=== PATIENT | female | born 1980 | race Hispanic/Latino ===

== ENCOUNTER 2016-07-16 19:16 | Emergency (ER) | payer MEDICAID ==
[2016-07-16 19:17] VITALS: BMI 36.8
[2016-07-16 19:24] VITALS: BP 120/70; PULSE 103; O2SAT 97
[2016-07-16 19:35] VITALS: TEMP 98.6
[2016-07-16] MEDS ORDERED: Albuterol-Ipratrop 3 mg / 0.5 (3 ml) UD INH STA ×2 (20:16→21:37)
--- NOTE | 2016-07-16 20:18 | ED PDOC ---
HPI: SOB/CHF/COPD Time Seen by Provider: 07/16/16 19:39 Chief Complaint (Nursing): Shortness Of Breath Chief Complaint (Provider): SOB History Per: Patient Additional Complaint(s): 36 yo female, PMH of Asthma, presents to ED with complaints of shortness of breath, cough, congestion and asthma exacerbation x 4 days. Using inhaler with no relief. Complaints of chest pain when inhaling. Of note: Pt's daughter here to be evaluated for the same Past Medical History Reviewed: Nursing Documentation, Vital Signs Vital Signs: Last Vital Signs Temp 98.6 F 07/16/16 19:21 Pulse 103 H 07/16/16 19:21 Resp 22 07/16/16 22:32 BP 120/70 07/16/16 19:21 Pulse Ox 97 07/16/16 20:18 - Medical History PMH: Asthma, Cardia Arrhythmia, HTN, Hypercholesterolemia - Surgical History Surgical History: - Family History Family History: States: Unknown Family Hx - Living Arrangements Living Arrangements: With Family - Social History Current smoker - smoking cessation education provided: No Alcohol: Social Drugs: Denies - Immunization History Hx Tetanus Toxoid Vaccination: No Hx Influenza Vaccination: No Hx Pneumococcal Vaccination: No - Home Medications Home Medications: Ambulatory Orders Medication Instructions Recorded Advair Diskus 500/50 500 mcg INH BID 11/24/12 Albuterol Sulfate 3 ml 3 ml INH PRN PRN 11/24/12 Azithromycin [Zithromax] 500 mg PO DAILY #6 tab 07/16/16 Fluticasone/Salmeterol 250/50 1 dsk IH DAILY #1 puff 07/16/16 [Advair Diskus] Methylprednisolone [Medrol Dose 4 mg PO DAILY #21 mg 07/16/16 Pack (21 tabs)] Promethazine HCl/Codeine 5 ml PO HS #80 ml 07/16/16 [Prometh-Codein 6.25-10 mg/5 ml] - Allergies Allergies/Adverse Reactions: Allergies Allergy/AdvReac Type Severity Reaction Status Date / Time No Known Allergies Allergy Unverified 04/09/14 01:49 Review of Systems ROS Statement: Except As Marked, All Systems Reviewed And Found Negative ENT: Positive for: Nose Congestion Respiratory: Positive for: Cough Physical Exam - Reviewed Nursing Documentation Reviewed: Yes Vital Signs Reviewed: Yes - Physical Exam Appears: Positive for: Well, Non-toxic, No Acute Distress Head Exam: Positive for: ATRAUMATIC, NORMAL INSPECTION, NORMOCEPHALIC Skin: Positive for: Normal Color, Warm, DRY Eye Exam: Positive for: EOMI, Normal appearance, PERRL ENT: Positive for: Normal ENT Inspection Neck: Positive for: Normal, Painless ROM Cardiovascular/Chest: Positive for: Regular Rate, Rhythm Respiratory: Positive for: Normal Breath Sounds, Wheezing (bilaterally). Negative for: Decreased Breath Sounds, Accessory Muscle Use Gastrointestinal/Abdominal: Positive for: Normal Exam, Bowel Sounds, Soft Back: Positive for: Normal Inspection Extremity: Positive for: Normal ROM Neurologic/Psych: Positive for: Alert, Oriented - ECG O2 Sat by Pulse Oximetry: 97 Medical Decision Making Medical Decision Making: CXR: NAD, as read by ARELIS Muller neb x 2 administered as well as 125 mg Solumedrol On re-eval, Pt reports feeling greatly improved. POX:97% on RA Lungs CTA bilaterally with full resolution of wheezing Disposition - Clinical Impression Clinical Impression: Otitis media, Cough, Bronchospasm - Patient ED Disposition Is Patient to be Admitted: No - Disposition Disposition: Routine/Home Disposition Time: 21:00 Condition: STABLE Prescriptions: Azithromycin [Zithromax] 500 mg PO DAILY #6 tab Fluticasone/Salmeterol 250/50 [Advair Diskus] 1 dsk IH DAILY #1 puff Methylprednisolone [Medrol Dose Pack (21 tabs)] 4 mg PO DAILY #21 mg Promethazine HCl/Codeine [Prometh-Codein 6.25-10 mg/5 ml] 5 ml PO HS #80 ml Instructions: Otitis Media (ED), Upper Respiratory Infection (ED)
[2016-07-16 22:35] VITALS: RESP 22
--- NOTE | 2016-07-17 07:45 | RAD ---
HISTORY: cough and fever COMPARISON: No prior. TECHNIQUE: Chest PA and lateral FINDINGS: LUNGS: No active pulmonary disease. PLEURA: No significant pleural effusion identified. No pneumothorax apparent. CARDIOVASCULAR: Normal. OSSEOUS STRUCTURES: No significant abnormalities. VISUALIZED UPPER ABDOMEN: Normal. OTHER FINDINGS: None. IMPRESSION: No active disease.
== END 2016-07-16 20:12 | disposition home or self-care (01) ==
LOC: H.ER 19:16
DX: J98.01 Acute bronchospasm (principal); R05 Cough; H66.90 Otitis media, unspecified, unspecified ear; R50.9 Fever, unspecified

== ENCOUNTER 2016-07-27 19:30 | Emergency (ER) | payer MEDICAID ==
[2016-07-27 19:31] VITALS: BMI 36.8
[2016-07-27 19:52] VITALS: RESP 16
--- NOTE | 2016-07-27 20:41 | ED PDOC ---
HPI: Headache Time Seen by Provider: 07/27/16 20:08 Chief Complaint (Nursing): Headache Chief Complaint (Provider): headache History Per: Patient History/Exam Limitations: no limitations Onset/Duration Of Symptoms: Days (2), Waxing/Waning Current Symptoms Are (Timing): Still Present Quality: "Pain" Associated Symptoms: Nausea, Vomiting Additional History Per: Patient Additional Complaint(s): 36 y/o female history of asthma, hypertension presents for eval of intermittent headache x 2 days. Patient describes pain as "pressure", states when it first presented the pain traveled down left side of neck to chest, and then her left arm became numb. Patient feels the intensity of the pain caused her to have anxiety, as she has had a family member who recently from a brain tumor. Patient has not had those associated symptoms since. Patient notes one vomiting episode last night. Patient notes headache to come and go throughout the day, little relief with OTC medications. Denies fever, neck pain/stiffness , extremity numbness/weakness, vision changes, chest pain, shortness of breath, palpitations, abdominal pain, recent travel, sick contacts. Past Medical History Reviewed: Historical Data, Nursing Documentation, Vital Signs Vital Signs: Last Vital Signs Temp 98.0 F 07/27/16 19:49 Pulse 67 07/27/16 19:49 Resp 16 07/27/16 19:49 BP 132/73 07/27/16 19:49 Pulse Ox 100 07/27/16 19:49 - Medical History PMH: Asthma, Cardia Arrhythmia, HTN, Hypercholesterolemia - Surgical History Surgical History: - Family History Family History: States: Unknown Family Hx - Living Arrangements Living Arrangements: With Family - Social History Current smoker - smoking cessation education provided: No Alcohol: None Drugs: Denies - Immunization History Hx Tetanus Toxoid Vaccination: No Hx Influenza Vaccination: No Hx Pneumococcal Vaccination: No - Home Medications Home Medications: Ambulatory Orders Medication Instructions Recorded Advair Diskus 500/50 500 mcg INH BID 11/24/12 Albuterol Sulfate 3 ml 3 ml INH PRN PRN 11/24/12 Azithromycin [Zithromax] 500 mg PO DAILY #6 tab 07/16/16 Fluticasone/Salmeterol 250/50 1 dsk IH DAILY #1 puff 07/16/16 [Advair Diskus] Methylprednisolone [Medrol Dose 4 mg PO DAILY #21 mg 07/16/16 Pack (21 tabs)] Promethazine HCl/Codeine 5 ml PO HS #80 ml 07/16/16 [Prometh-Codein 6.25-10 mg/5 ml] Amoxicillin/Clavulanate [Augmentin 1 tab PO Q12 #14 tab 07/27/16 875 MG-125 MG] Fluticasone Nasal [Flonase] 1 actuation NS BID #1 bottle 07/27/16 Naproxen [Naprosyn] 500 mg PO Q12 PRN #20 tablet 07/27/16 - Allergies Allergies/Adverse Reactions: Allergies Allergy/AdvReac Type Severity Reaction Status Date / Time No Known Allergies Allergy Unverified 04/09/14 01:49 Review of Systems ROS Statement: Except As Marked, All Systems Reviewed And Found Negative Neurological: Positive for: Headache Physical Exam - Reviewed Nursing Documentation Reviewed: Yes Vital Signs Reviewed: Yes - Physical Exam Appears: Positive for: Well, Non-toxic, No Acute Distress Head Exam: Positive for: ATRAUMATIC, NORMAL INSPECTION, NORMOCEPHALIC Skin: Positive for: Normal Color Eye Exam: Positive for: Normal appearance, EOMI, PERRL ENT: Positive for: Normal ENT Inspection Cardiovascular/Chest: Positive for: Regular Rate, Rhythm Respiratory: Positive for: Normal Breath Sounds Gastrointestinal/Abdominal: Positive for: Normal Exam Back: Positive for: Normal Inspection Extremity: Positive for: Normal ROM Neurologic/Psych: Positive for: Alert, Oriented - Laboratory Results Result Diagrams: 07/27/16 21:11 07/27/16 21:11 - ECG ECG: Positive for: Viewed By Me (reviewed by ED attending) ECG Rhythm: Positive for: Sinus Rhythm O2 Sat by Pulse Oximetry: 100 - Progress ED Course And Treament: labs, ekg, CT head, IV fluids, PO tylenol EXAM: CT Head Without Intravenous Contrast CLINICAL HISTORY: 36 years old, female; Pain; Headache; Headache not specified; Additional info: Headache. Sent phy. Doc. With request TECHNIQUE: Axial computed tomography images of the head/brain without intravenous contrast. This CT exam was performed using one or more of the following dose reduction techniques: automated exposure control, adjustment of the mA and/or kV according to patient size, and/or use of iterative reconstruction technique. Coronal and sagittal reformatted images were created and reviewed. COMPARISON: CT HEAD OR BRAIN W/O CONT 12/01/2012 7:38:50 PM FINDINGS: Brain: No intracranial hemorrhage. No mass. No definite edema. Ventricles: No hydrocephalus. Bones/joints: No acute fracture. Soft tissues: Unremarkable. Sinuses: Moderate mucosal thickening of visualized maxillary sinuses. Scattered mild mucosal thickening of ethmoid sinuses. Mild to moderate mucosal thickening of sphenoid sinuses. Mastoid air cells: No mastoid effusion. Orbits: Unremarkable as visualized. IMPRESSION: 1. No acute intracranial abnormality. 2. Sinus disease. 3. Incidental/non-acute findings are described above. Patient educated on findings, discharged with rx Augmentin, flonase, Naproxen. Advised follow up PMD 2-3 days. Return to ED for worsneing/concerning symptoms. Disposition - Clinical Impression Clinical Impression: Headache, Sinusitis - Patient ED Disposition Is Patient to be Admitted: No Counseled Patient/Family Regarding: Studies Performed, Diagnosis, Need For Followup, Rx Given - Disposition Disposition: Routine/Home Disposition Time: 23:01 Condition: IMPROVED Prescriptions: Amoxicillin/Clavulanate [Augmentin 875 MG-125 MG] 1 tab PO Q12 #14 tab Fluticasone Nasal [Flonase] 1 actuation NS BID #1 bottle Naproxen [Naprosyn] 500 mg PO Q12 PRN #20 tablet PRN Reason: Pain, Moderate (4-7) Instructions: Sinusitis (ED), Acute Headache (ED)
[2016-07-27 21:16] LABS: BASO # 0.1 K/uL (0.0-0.2); EOS # 0.1 K/uL (0.0-0.7); EOS % 1.5 % (0.0-4.0); HEMATOCRIT 39.5 % (34.0-47.0); LYMPH # 2.3 K/uL (1.0-4.3); LYMPH % 26.4 % (20.0-40.0); MEAN CELL VOLUME 90.3 fl (81.0-99.0); MEAN CORPUSCULAR HEMOGLOBIN 30.1 pg (27.0-31.0); MEAN CORPUSCULAR HGB CONC 33.3 g/dL (33.0-37.0); MEAN PLATELET VOLUME 9.1 fl (7.2-11.7); MONO # 0.6 K/uL (0.0-0.8); MONO % 6.6 % (0.0-10.0); NEUT # 5.7 K/uL (1.8-7.0); NEUT % 64.5 % (50.0-75.0); NRBC % 0.1 % (0.0-0.0); WHITE BLOOD COUNT 8.9 K/uL (4.8-10.8)
[2016-07-27] MEDS: Sodium Chloride 0.9% 1,000 ML IV STA (21:16)
[2016-07-27 21:26] LABS: ALB/GLOB RATIO 1.6 (1.0-2.1); ALKALINE PHOSPHATASE 62 U/L (38-126); ALT/SGPT 27 U/L (9-52); AST/SGOT 18 U/L (14-36); BILIRUBIN,TOTAL 0.3 mg/dl (0.2-1.3); BLOOD UREA NITROGEN 13 mg/dl (7-17); CALCIUM 9.2 mg/dL (8.4-10.2); CARBON DIOXIDE 28 mmol/L (22-30); CHLORIDE 105 mmol/L (98-107); GFR AFRICAN-AMERICAN > 60; GLUCOSE,RANDOM 97 mg/dL (65-105); POTASSIUM 4.3 MMOL/L (3.6-5.0); SODIUM 142 mmol/l (132-148)
--- NOTE | 2016-07-27 22:43 | CT ---
EXAM: CT Head Without Intravenous Contrast CLINICAL HISTORY: 36 years old, female; Pain; Headache; Headache not specified; Additional info: Headache. Sent phy. Doc. With request TECHNIQUE: Axial computed tomography images of the head/brain without intravenous contrast. This CT exam was performed using one or more of the following dose reduction techniques: automated exposure control, adjustment of the mA and/or kV according to patient size, and/or use of iterative reconstruction technique. Coronal and sagittal reformatted images were created and reviewed. COMPARISON: CT HEAD OR BRAIN W/O CONT 12/01/2012 7:38:50 PM FINDINGS: Brain: No intracranial hemorrhage. No mass. No definite edema. Ventricles: No hydrocephalus. Bones/joints: No acute fracture. Soft tissues: Unremarkable. Sinuses: Moderate mucosal thickening of visualized maxillary sinuses. Scattered mild mucosal thickening of ethmoid sinuses. Mild to moderate mucosal thickening of sphenoid sinuses. Mastoid air cells: No mastoid effusion. Orbits: Unremarkable as visualized. IMPRESSION: 1. No acute intracranial abnormality. 2. Sinus disease. 3. Incidental/non-acute findings are described above.
[2016-07-27 23:18] VITALS: BP 128/73; PULSE 77; TEMP 98; O2SAT 99
--- NOTE | 2016-07-30 19:04 | CARD ---
APPROVED REPORT EKG Measurement Heart [id number] <Conclusion> Normal sinus rhythm with sinus arrhythmia Normal ECG
== END 2016-07-27 23:18 | disposition home or self-care (01) ==
LOC: H.ER 19:30
DX: R51 Headache (principal); J01.90 Acute sinusitis, unspecified